=== PATIENT | female | born 1975 | race American Indian/Alaskan Native ===

== ENCOUNTER 2018-11-25 13:50 | Emergency (ER) | payer OTHER ==
--- NOTE | 2018-11-25 14:02 | Emergency Department Report ---
Chief Complaint: Weakness Stated Complaint: VERY TIRED/HX OF LOW IRON Time Seen by Provider: 11/25/18 14:01 - HPI History of Present Illness: LAST YEAR PT GOT 2 U PRBC FOR ANEMIA NEVER FOLLOWED UP RX NONE PCP NONE NO CIG/ETOH/DRUGS SOB CURRENT MENSES NO PAIN MSE COMPLETED - Exam Vital Signs: Vital Signs 11/25/18 13:59 Temperature 98.4 F Pulse Rate 72 Respiratory 18 Rate Blood Pressure 174/96 O2 Sat by Pulse 100 Oximetry MSE screening note: Focused history and physical exam performed. Due to findings the following was ordered: ED Disposition for MSE Condition: Stable
[2018-11-25 14:59] LABS: Mean Corpuscular HGB Conc 30 % (30-34); Platelet Count 244 K/mm3 (140-440); Red Blood Count 4.86 M/mm3 (3.65-5.03); Red Cell Distribution Width 18.6 % (13.2-15.2)
[2018-11-25 15:05] LABS: Hemoglobin 9.5 gm/dl (10.1-14.3)
[2018-11-25 15:06] LABS: Hematocrit 32.2 % (30.3-42.9); Mean Corpuscular Volume 66 fl (79-97)
[2018-11-25 15:10] LABS: HCG Qualitative,Urine Negative (Negative)
[2018-11-25 15:12] LABS: Bilirubin,Urine NEG (Negative); Blood,Urine NEG (Negative); Color,Urine Straw (Yellow); Mucus,Urine FEW /HPF; Protein,Urine <15 mg/dL mg/dL (Negative); RBC,Urine < 1.0 /HPF (0.0-6.0); Urobilinogen,Urine < 2.0 mg/dL (<2.0); WBC,Urine < 1.0 /HPF (0.0-6.0)
--- NOTE | 2018-11-25 15:42 | Emergency Department Report ---
HPI - General Chief Complaint: Weakness Time Seen by Provider: 11/25/18 14:01 - [facility] HPI: Room 24 The patient is a 43-year-old female presented with a chief complaint of fatigue. The patient states for the past week she was felt fatigue and this time she normally feels when she is anemic. Patient states she's been diagnosed with iron deficiency anemia but cannot take iron supplements because they make her violently ill. The patient states her menses began yesterday but she has not gone through any pads yet. Location: [See above] Duration: One week Quality: Fatigue Severity: [See above] Modifying factors: [see above] Context: [see above] Mode of transportation: [not driving] ED Past Medical Hx - Past Medical History Previous Medical History?: Yes Additional medical history: anemia - Surgical History Past Surgical History?: Yes Additional Surgical History: tubal ligation - Family History Family history: no significant - Social History Smoking Status: Never Smoker Substance Use Type: None (denies illicit drug use) ED Review of Systems ROS: Stated complaint: VERY TIRED/HX OF LOW IRON Other details as noted in HPI Constitutional: malaise Eyes: denies: eye pain ENT: denies: throat pain Respiratory: no symptoms reported Cardiovascular: denies: chest pain Endocrine: no symptoms reported Gastrointestinal: denies: abdominal pain Genitourinary: denies: dysuria Musculoskeletal: denies: back pain Neurological: denies: headache Physical Exam - Physical Exam Vital Signs: Vital Signs 11/25/18 13:59 Temperature 98.4 F Pulse Rate 72 Respiratory 18 Rate Blood Pressure 174/96 O2 Sat by Pulse 100 Oximetry Physical Exam: GENERAL: The patient is well-developed well-nourished female sitting on stretcher not appearing to be in acute distress. [] HEENT: Normocephalic. Atraumatic. Extraocular motions are intact. Patient has moist mucous membranes. NECK: Supple. Trachea midline CHEST/LUNGS: Clear to auscultation. There is no respiratory distress noted. HEART/CARDIOVASCULAR: Regular. There is no tachycardia. There is no gallop rub or murmur. ABDOMEN: Abdomen is soft, nontender. Patient has normal bowel sounds. There is no abdominal distention. SKIN: There is no rash. There is no edema. There is no diaphoresis. NEURO: The patient is awake, alert, and oriented. The patient is cooperative. The patient has normal speech MUSCULOSKELETAL: There is no evidence of acute injury. ED Course Vital Signs 11/25/18 13:59 Temperature 98.4 F Pulse Rate 72 Respiratory 18 Rate Blood Pressure 174/96 O2 Sat by Pulse 100 Oximetry ED Medical Decision Making - Lab Data Result diagrams: 11/25/18 14:37 11/25/18 14:37 Laboratory Tests 11/25/18 11/25/18 11/25/18 14:37 14:37 15:33 WBC 4.3 L RBC 4.86 Hgb 9.5 L Hct 32.2 MCV 66 L MCH 20 L MCHC 30 RDW 18.6 H Plt Count 244 Sodium 142 Potassium 4.4 Chloride 104.9 Carbon Dioxide 27 Anion Gap 15 BUN 10 Creatinine 0.5 L Estimated GFR > 60 BUN/Creatinine Ratio 20 Glucose 108 H Calcium 9.0 Iron 24 L TIBC 395 TSH 0.736 Free T4 1.02 Urine Color Urine Turbidity Urine pH Ur Specific [place] Urine Protein Urine Glucose (UA) Urine Ketones Urine Blood Urine Nitrite Ur Reducing Substances Urine Bilirubin Urine Ictotest Urine Urobilinogen Ur Leukocyte Esterase Urine WBC (Auto) Urine RBC (Auto) U Epithel Cells (Auto) Urine Mucus Urine HCG, Qual 11/25/18 Unknown WBC RBC Hgb Hct MCV MCH MCHC RDW Plt Count Sodium Potassium Chloride Carbon Dioxide Anion Gap BUN Creatinine Estimated GFR BUN/Creatinine Ratio Glucose Calcium Iron TIBC TSH Free T4 Urine Color Straw Urine Turbidity Clear Urine pH 8.0 H Ur Specific [place] 1.015 Urine Protein <15 mg/dl Urine Glucose (UA) Neg Urine Ketones Neg Urine Blood Neg Urine Nitrite Neg Ur Reducing Substances Not Reportable Urine Bilirubin Neg Urine Ictotest Not Reportable Urine Urobilinogen < 2.0 Ur Leukocyte Esterase Neg Urine WBC (Auto) < 1.0 Urine RBC (Auto) < 1.0 U Epithel Cells (Auto) 1.0 Urine Mucus Few Urine HCG, Qual Negative - Differential Diagnosis anemia, hypothyroidism, hyponatremia Critical care attestation.: If time is entered above; I have spent that time in minutes in the direct care of this critically ill patient, excluding procedure time. ED Disposition Clinical Impression: Fatigue Disposition: DC-01 TO HOME OR SELFCARE Is pt being admited?: No Does the pt Need Aspirin: No Condition: Stable Instructions: Fatigue (ED), Weakness (ED) Additional Instructions: Return to the emergency department immediately should you develop worsening symptoms, fever, inability to tolerate food or liquid or any other concerns. Referrals: [facility] [Outside] - 3-5 Days Time of Disposition: 16:24
[2018-11-25 15:43] LABS: BUN/Creatinine Ratio 20; Blood Urea Nitrogen 10 mg/dL (7-17); Hemolysis Index 19; Iron 24 ug/dL (37-170); Total Iron Binding Capacity 395 mcg/dL (250-450)
[2018-11-25 16:17] LABS: Free T4 (Free Thyroxine) 1.02 ng/dL (0.76-1.46)
[2018-11-25 16:33] VITALS: BP 178/92
== END 2018-11-25 16:50 | disposition home or self-care (01) ==
LOC: ED 13:50
DX: R53.83 Other fatigue (principal); D64.9 Anemia, unspecified; Z98.51 Tubal ligation status
CPT/HCPCS: 36415; 80048; 81001; 81025; 83550; 84439; 84443; 85027